=== PATIENT | male | born 1975 | race Caucasian/White ===

== ENCOUNTER → 2017-11-19 08:43 | Outpatient (CLI) | payer BC, SELFPAY ==
--- NOTE | 2017-11-19 08:53 | RAD_ITS ---
Procedure: Left hip injection. INDICATIONS: Left hip pain x2 years. CONSENT: The entire procedure, risks, benefits and alternatives (including doing nothing) were discussed with the patient preprocedure. Risks presented included (but were not limited to) infection/abscess/septic joint, bleeding, pain, and reaction to medications. All patient questions were answered satisfactorily. Written consent was obtained, witnessed and placed on the patient's chart. TECHNIQUE: The patient was taken into the fluoroscopy suite and placed in the supine position. A short time out was observed. Limited and directed preprocedure fluoroscopy of the left hip was performed and an intended percutaneous site identified and marked. The soft tissues overlying the left hip were then thoroughly prepped and draped in usual sterile manner. Local anesthesia was obtained with approximately 1.0 cc of 1% lidocaine without epinephrine. Next, 20-gauge spinal needle was utilized and inserted through the anterior soft tissues with tip parked on the femoral head within the joint space. From this location, 30 mg of betamethasone and 1 cc and 3 cc of 1% lidocaine without epinephrine were injected into the joint space. All devices were removed, the soft tissues cleansed and a Band-Aid applied. RAD/Inj/Asp Bakari Jt Should/Hip/Knee IMPRESSION: Successful left hip injection. Complication: The patient tolerated the procedure well. There was no evidence for immediate postprocedure complication. Fluoroscopy time 19 seconds. Electronically Signed: Gutierrez Sage MD at 10:40 EDT , Service support ,
== END ==
PROVIDERS: Family Provider Family Medicine; PCP Family Medicine; Visit Provider Specialist
DX: M16.12 Unilateral primary osteoarthritis, left hip (principal)
CPT/HCPCS: 20610; 77002; J0702

== ENCOUNTER 2018-07-14 06:36 | Inpatient (IN) | payer BC, SELFPAY ==
[2018-06-30 09:17] VITALS: BP 115/79; PULSE 71; RESP 16; TEMP 36.7; O2SAT 96; BMI 28.8
--- NOTE | 2018-06-30 09:31 | SDCEKG_ITS ---
Test Reason : Blood Pressure : / mmHG Vent. Rate : 072 BPM Atrial Rate : 072 BPM P-R Int : 150 ms QRS Dur : 078 ms QT Int : 364 ms P-R-T Axes : 060 051 050 degrees QTc Int : 398 ms Normal sinus rhythm Normal ECG Confirmed by BIRDIE PURCELL, OSWALDO ([id number]), news copy editor AHSAN NEVILLE ([id number]) on 07/02/2018 2:49:07 PM Referred By: Lenin Amador Confirmed By:OSWALDO PACKER MD
[2018-06-30 10:14] LABS: Absolute Lymphocyte Count 1.54 X10^3/ul (0.83-4.51); Absolute Neutrophil Count 1.6 X10^3/uL (2.0-7.7); Basophil# 0.02 X10^3/uL; Basophil% 0.6 % (0-1); Eosinophil# 0.04 X10^3/uL; Eosinophils% 1.1 % (0-5); Hematocrit 43.2 % (40-54); Hemoglobin 15.2 g/dl (13.0-16.5); Lymphocyte # 1.54 X10^3/ul (4.0); Lymphocyte % 44.3 % (19-41); Mean Corp Hgb Conc 35.2 g/gl (32-36); Mean Corpuscular Hgb 32.2 pg (27.0-32.0); Mean Corpuscular Volume 91.5 fL (80-94); Mean Platelet Vol. 9.4 fl (6.2-12.0); Monocyte# 0.32 X10^3/uL; Monocyte% 9.2 % (0-10); Neutrophil # 1.56 X10^3/uL (2.7-7.7); Neutrophil % 44.8 % (47-70); Platelet Count 232 K/mm3 (150-450); RBC Distribution Width CV 11.7 % (11.6-14.6); Red Blood Count 4.72 M/mm3 (4.6-6.2); White Blood Count 3.5 K/mm3 (4.4-11.0)
[2018-06-30 10:19] LABS: POSITIVE COUNT NO; POSITIVE DIFFERENTIAL NO; POSITIVE MORPHOLOGY NO
[2018-06-30 10:45] LABS: Anion Gap 8 (5-15); BUN 15 mg/dL (7-18); BUN/Creat Ratio 15.4 RATIO (10-20); Calcium,Total 9.1 mg/dL (8.5-10.1); Chloride 106 mmol/L (98-107); Creatinine, Serum 0.98 mg/dL (0.70-1.30); EST Glomerular Filtration Rate 90 mL/min (>60); Est Glom Filt Rate - Afr Amer 109 mL/min (>60); Estimated Creatinine Clearance 96.94 ml/min; Glucose 84 mg/dL (74-106); Sodium Level 142 mmol/L (136-145)
--- NOTE | 2018-06-30 21:52 | HP.PCM_ITS ---
History and Physical DATE OF SURGERY: 07/14/2018 SCHEDULED PROCEDURE: Left total Hip Arthroplasty HISTORY OF PRESENT ILLNESS: This is a 42-year-old male who has been having left hip pain for approximately 2 years. Pain has been intermittent, sharp, stabbing. He has increased pain going up and down stairs, sitting for extended periods of time, and walking. Patient states he has difficult time with activities of daily living including housework and leisure activities. Patient does report a previous injury in high school while playing soccer when he had a groin pull followed by intermittent pain in the left hip over the years. He does complain of catching and clicking in the left hip. Patient does have start up pain. Pain is located in his g roin. Patient has tripped/stumbled secondary to his left hip pain. He also does complain of right hip pain. Patient has tried conservative measures consisting of rest, heat, elevation with minimal relief. Patient did undergo a corticosteroid injection into the left hip in the spring which only gave him temporary relief. He has tried home exercises with no relief in symptoms. He has tried animal care taker with no relief. Patient has been on oral medications consisting of Advil with minimal relief. He has been on previous tramadol for pain. Patient denies previous surgery on the left hip. He denies any recent chest pain, shortness of breath, fevers chills, or recent infections. Patient does not report any medical problems. We are getting clearance from his primary care physician. REVIEW OF SYSTEMS: ROS: Const: Denies change in appetite, fever,or weight change. CV: Denies chest pain, heart murmur and irregular heartbeat. Resp: Denies cough, pneumonia, SOB, tuberculosis and wheezing. GI: Denies constipation, diarrhea, difficulty swallowing, heartburn, nausea, bloody stools and vomiting. : Urinary: denies incontinence. Musculo: Reports limp, trouble walking and weakness, but denies leg swelling. Skin: Reports tattoo, but denies Raynaud's and history of shingles. Neuro: Reports dizziness but denies ambulatory dysfunction, numbness/tingling and tremor. Psych: Denies anxiety, insomnia and stress. Eamon/Lymph: Denies anemia, bleeding/bruising tendency and past transfusion. Reviewed, no changes. PAST MEDICAL HISTORY: Advance Care Plan: No Advance Directives Effective Date: 03/02/2017 PMH: Medical Problems: No Current Problems Accidents: Fracture - LT PATELLA FX CHILD, BOTH ARMS Surgical Hx: Appendectomy, Knee Arthroscopy Lt Anesthesia Complications: None Assistive Devices: Contacts Reviewed, no changes. SOCIAL HISTORY: SH: Marital: .Occupation: [employer].Work Status: Currently Working.Hand Dominance: Right-handed. Personal Habits: Cigarette Use: Former.Alcohol: Occasionally.Drug Use: Denies Use.Enjoy Exercising: Exercises 1-3 x/month. Reviewed and updated. VITALS: Ht: 68 Wt: 190lb Wt k.184 BMI: 28.9 BP: 108/80 Pulse: 68 Resp: 16 T: 97.9 T: 36.6C ALLERGIES: Penicillin MEDICATIONS: Etodolac 400 mg 1 by mouth twice a day PRE-OP EXAM: General appearance:NORMAL Other: Eyes: Conjunctivae and lids: NORMAL Pupils: ERR Ears, Nose, Mouth, and Throat: NORMAL Other: Inspection of lips, teeth and gums: NORMAL Other: Neck: Examination of neck: no masses noted. Respiratory: Assessment of respiratory effort: NORMAL Other: Auscultation of lungs: clear to auscultation no wheezes, rhonchi or rales. Cardiovascular: Auscultation of heart: regular rate and rhythm, no murmurs, gallops or rubs. Exam of carotid arteries: NORMAL Other: Gastrointestinal: Exam of abdomen: soft, nontender, nondistended bowel sounds present. PHYSICAL EXAMINATION: Patient does walk with minimal limping gait. Left hip range of motion: Flexion 95, internal rotation to neutral, external rotation 25. Patient does have decreased strength left hip. Range of motion increases his left hip pain. Sensation intact to light touch. Neurovascularly intact. IMAGING STUDIES: X-rays obtained at [facility] [place] on June 30, 2018 including 2 views AP pelvis and AP left hip reveals severe left hip osteoarthritis with pistol hadoop software engineer deformity. Left hip shows a large cam and pincer lesion There is significant joint space narrowing with subchondral sclerosis. Right hip also shows pistol hadoop software engineer deformity with acetabular rim fracture versus os acetabuli. Right hip also shows joint space narrowing with subchondral sclerosis. IMPRESSION: 1. Severe left hip osteoarthritis with large CAM and pincer lesion 2. Severe right hip osteoarthritis PLAN: Dr. Lenin Amador did discuss and review with the patient all treatment options including surgical versus nonsurgical options. Patient does wish to proceed with the above-stated procedure. Potential risks, benefits, and complications of the procedure were discussed in detail including but not limited to , infection, nerve and blood vessel damage, persistent pain, numbness, tingling, paresthesias, blood clot, pulmonary embolism, and requirement for possible further surgery. The patient expressed full understanding and has no further questions for the doctor. Patient does agree to proceed with the above-stated procedure and has signed the surgery consent form. This dictation was created using voice recognition software. Phonetic and/or grammatical errors may exist.. ___ I have re-examined the patient. There are no clinical changes since date of exam. ___ See progress notes for changes. ___ Dictated on admission Date: Time: Signature:
[2018-07-14] VITALS (11 sets, daily range): BP systolic 101–120; BP diastolic 64–86; PULSE 52–80; RESP 16–18; TEMP 36.3–37.6; O2SAT 98–100; BMI 28.8
[2018-07-14] MEDS: Acetaminophen 500 MG Tablet 1000 MG PO ×3 (07:18→21:11)
[2018-07-14] MEDS: Celecoxib 200 MG Capsule 400 MG PO (07:18)
[2018-07-14] MEDS: oxyCODONE HCl Cr 10 MG Tablet PO (07:19)
[2018-07-14] MEDS: Lactated Ringers 1,000 ML 999 ML IV ×2 (07:48→10:55)
--- NOTE | 2018-07-14 08:45 | RAD_ITS ---
STUDY: X-RAY - LEFT HIP REASON FOR EXAM: Male, 42 years old. Left anterior total hip replacement. TECHNIQUE: 2 views of the hip. COMPARISON: None. FINDINGS: Intraoperative imaging provided for left anterior total hip replacement. There is good alignment. RAD/Hip 1 view with Pelvis IMPRESSION: Intraoperative imaging provided for left anterior total hip replacement. There is good alignment. Electronically Signed: Chriss Velasco MD at 13:02 EST Tel [phone], Service support ,
--- NOTE | 2018-07-14 10:05 | OP.PCM_ITS ---
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 Accolade 2 Tania femoral stem size 5 132? 2. Shokan trident acetabular shell size 52 mm 3. Tania X3 polyethylene E 4. Tania Biolox delta 36mm, 0mm femoral head Brief history operative indications: 42 yo M who failed conservative measures for their hip osteoarthritis. X-rays were consistent with osteoarthritis including joint space narrowing, osteophyte formation and subchondral cysts. Total hip replacement was discussed with the patient with risks and benefits including but not limited to blood loss, DVTs, PEs, neurovascular damage, dislocation, general risks of anesthesia including loss of life. Patient demonstrated an understanding medical clearance is obtained the patient was consented for surgery. Procedure: On the date of procedure the patient's L hip was marked in the preoperative area. Patient was then taken back to the operating room where anesthesia assumed control of the C-spine and airway and administered anesthetic. Patient was transferred to the operating table and placed in the supine position. The hips were placed at the break of the bed and a sacral bump was placed. The L lower extremity was then prepped out in a sterile fashion using chlorhexidine while the surgeon scrubbed. The PA was vital in the positioning of the patient. Upon reentering the room the L lower extremity was draped in the standard orthopedic fashion and the incision was marked. A timeout was called and everyone agreed upon the side, the site, the procedure be performed, antibody given, and patient's identity. At this time incision was made through skin, subcutaneous tissue, and fat down to fascia. The fascia was then incised and the TFL was retracted laterally. A retractor was placed on the lateral border of the femoral neck. Attention was directed to the inferior portion of the approach and all crossing vessels were identified and appropriately coagulated. A retractor was then placed on the medial portion of the femoral neck. The anterior capsule was then cleared of all soft tissue and then H shaped capsulotomy was made. The retractors were then placed inside the capsule. The femoral neck was identified and a cleanup cut was made. At this time a power corkscrew was used to remove the femoral head. Attention was then turned toward the acetabulum where the soft tissues were appropriately retracted and the acetabulum was sequentially reamed to 54 mm. A 54 mm cup was then selected and impacted into place. Acetabular liner was impacted into place and locking mechanism was verified. The position of the acetabular cup was then verified under live fluoroscopy. Attention was then turned to the femur. Soft tissue releases on the medial and lateral femoral neck were appropriately done, the leg was externally rotated and lateralized. A Roman retractor was placed medially and proximally to the greater trochanter this allowed appropriate visualization and exposure of the femoral canal. Rongeour was then used to remove excess lateral bone. A canal finder and entry broach were used to open the proximal canal. Once we verified we were down the femoral canal we subsequently broached up to a size 5 femur. The appropriate neck was placed in the previously selected head was trialed with a 0 mm neck. Traction was pulled and the hip was reduced with internal rotation. Once it was appropriately reduced and stability was checked. There was minimal shuck, equal leg lengths and appropriate stability with hyperextension and external rotation as well as with 90? flexion and internal rotation. Fluoroscopy was then also used to verify the position of the components and leg lengths using the contralateral side for comparison. The trial components were then dislocated the proximal femur was again exposed and the components were removed from the wound. The final components were verified and opened. The wound was copiously irrigated out with normal saline. The acetabulum was checked for any residual debris. The final components were placed and impacted. Traction and internal rotation were again used to reduce the hip. After adequate reduction the hip remained stable with appropriate leg lengths. The final components were once again checked with live fluoroscopy and were found to be satisfactory. The wound was then copiously irrigated with normal saline once more, and hemostasis was obtained. Closure was then done using #1 Vicryl runner to close the fascia. A 2-0 vicryl interuppted sutures were used to close the subcutaneous skin. A 3-0 Monocryl and Steri-Strips were used for final skin closure. A Silverlon dressing was placed. Patient was awakened by anesthesia and transferred to the [facility]. Patient was then transferred to the PACU for recovery. Postoperative plan: Patient will get 24 hours postop antibiotics. Patient will get in-house physical therapy and will be weight-bear as tolerated. Patient will follow up in office in 2 weeks for a wound check and x-rays. Grafts/Implants Used: Tania Accolade 2, Trident 2 - Complications NONE - Admit VTE Documentation VTE Present on Admission: No VTE Mechan Device Prophylaxis: SCD's, Thigh High HAYLEY Hose VTE Pharm Prophylaxis ordered?: Yes
--- NOTE | 2018-07-14 10:30 | RAD_ITS ---
STUDY: X-RAY - LEFT HIP REASON FOR EXAM: Male, 42 years old. Left hip replacement. TECHNIQUE: 2 views of the hip. COMPARISON: Comparison is made with prior study done earlier today. FINDINGS: The patient is status post left total hip replacement. There is normal alignment. Postoperative soft tissue changes. There is deformity of the right femoral neck and head suggestive of a femoral acetabular impingement. RAD/Hip Min 2 Views (Portable) IMPRESSION: Status post left total hip replacement. There is good alignment. Postoperative soft tissue changes. Electronically Signed: Chriss Velasco MD at 11:12 EST Tel [phone], Service support ,
[2018-07-14] MEDS: Scopolamine 1mg/72hr Patch 1 PATCH TD (10:55)
[2018-07-14] MEDS: Famotidine 20 MG Tablet PO (12:14)
[2018-07-14] MEDS: Senna/Docusate Sodium 1 Tablet 2 TABLET PO ×2 (12:14→21:11)
[2018-07-14] MEDS: Lactated Ringers 1,000 ML 125 ML IV (12:14)
--- NOTE | 2018-07-14 15:58 | CHAPLAIN ---
Type of Pastoral Visit _x__ Initial Visit ___ Follow-up Visit ___ On-call Visit ___ General Patient Visit ___ Spiritual Assessment ___ Family Conference ___ Bereavement ___ Rapid Response ___ Code Blue ___ Other (describe below) Pastoral Care Referral From _x__ Patient ___ Family ___ Nurse ___ Physician ___ Beverage Steward ___ Laboratory Asst ___ Other (describe below) Sacrament/Intervention _x__ Active listening ___ Anointing ___ Sabianism ___ Bereavement ___ Communion _x__ Nadya exploration ___ _x__ Life review _x__ Prayer ___ Reconciliation ___ Sacrament of Sick ___ Supportive presence ___ Wedding ___ Other (describe below) Pastoral Comments
[2018-07-14] MEDS: Aspirin 81 MG TAB.CHEW PO (16:19)
[2018-07-14] MEDS: oxyCODONE 5 MG Tablet PO ×2 (19:11→23:20)
[2018-07-15 02:57] VITALS: BP 100/60; PULSE 82; RESP 16; TEMP 36.9; O2SAT 97
[2018-07-15] MEDS: Acetaminophen 500 MG Tablet 1000 MG PO ×2 (06:10→13:15)
[2018-07-15 06:46] LABS: Hematocrit 33.6 % (40-54); Hemoglobin 11.6 g/dl (13.0-16.5); Mean Corp Hgb Conc 34.5 g/gl (32-36); Mean Corpuscular Hgb 32.4 pg (27.0-32.0); Mean Corpuscular Volume 93.9 fL (80-94); Mean Platelet Vol. 9.3 fl (6.2-12.0); Platelet Count 194 K/mm3 (150-450); RBC Distribution Width CV 11.7 % (11.6-14.6); RBC Distribution Width SD 38.8 fl (35.1-43.9); Red Blood Count 3.58 M/mm3 (4.6-6.2); White Blood Count 7.4 K/mm3 (4.4-11.0)
[2018-07-15 06:56] LABS: Scan Indicated on CBC? Y/N NO
[2018-07-15 06:58] LABS: Anion Gap 8 (5-15); BUN 12 mg/dL (7-18); Calcium,Total 8.1 mg/dL (8.5-10.1); Chloride 106 mmol/L (98-107); Creatinine, Serum 0.86 mg/dL (0.70-1.30); EST Glomerular Filtration Rate 105 mL/min (>60); Est Glom Filt Rate - Afr Amer 127 mL/min (>60); Estimated Creatinine Clearance 110.47 ml/min; Glucose 95 mg/dL (74-106); Sodium Level 141 mmol/L (136-145)
[2018-07-15 08:00] VITALS: BP 99/68; PULSE 69; RESP 16; TEMP 37.2; O2SAT 94
[2018-07-15] MEDS: Aspirin 81 MG TAB.CHEW PO (08:33)
--- NOTE | 2018-07-15 09:03 | PCM.PN.ORT ---
Subjective: The patient was sitting in bed upon examination. Patient denies any chest pain, shortness of breath, dizziness, lightheadedness, nausea or vomiting, or calf pain. Pain is controlled on medications. No adverse overnight events. Overall patient is doing well. He does have pain over the anterior thigh on the surgical side. Patient does wish to go home today. Objective: Vital signs stable and afebrile. Patient is able to plantarflex and dorsiflex actively. Sensation is intact to light touch to saphenous, sural, superficial and deep peroneal, and tibial distribution. Dressing is clean dry and intact. Negative Homans bilaterally, negative signs and symptoms of DVT. - Physical Exam General: Alert, Oriented x3, Cooperative, No apparent distress Vital Signs Temp Pulse Resp BP Pulse Ox 99.0 F 69 16 99/68 94 07/15/18 08:00 07/15/18 08:00 07/15/18 08:00 07/15/18 08:00 07/15/18 08:00 Oxygen Delivery Method Room Air Weight: 86.183 kg Body Mass Index (BMI) 28.8 Intake and Output for Last 24 Hours 07/13/18 07/14/18 07/15/18 23:59 23:59 23:59 Intake Total 2646 / 2646 669 / 669 Balance 2646 / 2646 669 / 669 Laboratory Tests Past 24 Hrs 07/15/18 07/15/18 06:28 06:28 WBC 7.4 RBC 3.58 L Hgb 11.6 L Hct 33.6 L MCV 93.9 MCH 32.4 H MCHC 34.5 RDW 11.7 RDW Differential 38.8 Plt Count 194 MPV 9.3 Sodium 141 Potassium 4.0 Chloride 106 Carbon Dioxide 27.0 Anion Gap 8 BUN 12 Creatinine 0.86 Estim Creat Clear Calc 110.47 Est GFR (MDRD) Af Amer 127 Est GFR (MDRD) Non-Af 105 BUN/Creatinine Ratio 14.0 Glucose 95 Calcium 8.1 L Medical Necessity - Tobacco Use Smoking Status: Former smoker Tobacco Use: Chew Assessment/Plan 1. S/P left direct anterior total hip arthroplasty POD #1 2. Continue Pain Medications: Tylenol and OxyIR 3. DVT Prophylaxis: Aspirin 81 mg twice daily with food for 4 weeks postoperatively 4. PT/OT: Weightbearing as tolerated 5. H & H: 11.6/33.6, asymptomatic 6. Encouraged Incentive Spirometry 7. Disposition: Then will be for discharge home today if patient tolerates physical therapy and pain is controlled. Prescriptions will be E scribed to [facility] pharmacy. Patient will follow-up per postop instructions.
--- NOTE | 2018-07-15 09:09 | PCM.DC.THR ---
Discharge Diet: No Restrictions Discharge Activity: May Not Drive - while taking narcotic pain medications. May shower in (days): 1 - Turned dressing away from water Ice area for (Minutes): 20 - Every 1-2 hours while awake Weight Bearing Status: Weight bearing as tolerated Elevate: Operative Extremity Additional Activity Instructions:: Wear elastic stockings for 2 weeks. DO NOT use alcohol with narcotic pain medication. DO NOT make important decisions while taking narcotic medication. If you have problems with taking your medication (rash, itching, nausea, etc.) call the office at once. Call your doctor if your incision/area has: Increased Pain/ Swelling, Increased Redness, Foul Smelling Discharge Call your doctor if you observe: Fever of 101 or Higher Remove Dressing in (days):: 4 - Okay to remove dressing on July 19, 2018 Additional Instructions: Follow [facility] postop instructions Allergies/Adverse Reactions: Allergies Penicillins Allergy (Verified 06/30/18 09:15) Unknown Medications to take at Discharge Acetaminophen [Tylenol] 1,000 mg PO Q8 #90 tablet 07/15/18 Aspirin [Aspirin, Baby] 81 mg PO BIDCM #60 tab.chew 07/15/18 Famotidine [Pepcid] 20 mg PO DAILY #30 tablet 07/15/18 Meloxicam [Mobic] 7.5 mg PO BID #60 tablet 07/15/18 Oxycodone [Oxyir] 5 - 10 mg PO Q4H PRN PRN 5 Days #60 tablet 07/15/18 Senna/Docusate Sodium [Senokot-S] 2 tablet PO BID #20 tablet 07/15/18 The following prescriptions were given: Oxycodone [Oxyir] 5 - 10 mg PO Q4H PRN PRN 5 Days #60 tablet PRN Reason: Mod-Severe Pain (4-10/10) Acetaminophen [Tylenol] 1,000 mg PO Q8 #90 tablet Famotidine [Pepcid] 20 mg PO DAILY #30 tablet Aspirin [Aspirin, Baby] 81 mg PO BIDCM #60 tab.chew Meloxicam [Mobic] 7.5 mg PO BID #60 tablet Senna/Docusate Sodium [Senokot-S] 2 tablet PO BID #20 tablet Primary Care Physician: Marylin Brewer [Primary Care Provider] - Test Results: Test results from this visit will be discussed in further detail at your follow-up appointment, if applicable. Please Follow Up With: [facility] When: 07/16/18 @ 11:00 am Please Follow Up With: Hector Billings PA-C When: 07/28/18 @ 9:00 am
[2018-07-15] MEDS: Senna/Docusate Sodium 1 Tablet 2 TABLET PO (11:15)
[2018-07-15] MEDS: Famotidine 20 MG Tablet PO (11:15)
[2018-07-15] MEDS: Meloxicam 7.5 MG Tablet PO (11:15)
--- NOTE | 2018-07-15 12:10 | CASEMGMT ---
GABINO AHN Face to Face with patient for initial transition planning/care coordination assessment. RN JIMY introduced self and role at [facility]. Patient lying in bed, alert and oriented. Patient willing to participate in assessment and is able to answer all questions appropriately. Care providers, pharmacy, and demographics verified. Patient wishes to discharge home and is setup with [facility] for outpatient therapy with family providing transportation. Patient states that he will need FWW for at home and would like [employer] for DME. Script received for FWW and referral sent to JIMY Peralta arranged for walker to be delivered to hospital prior to discharge. . Patient states he has no further needs or concerns at this time. CM to follow for discharge planning needs that may arise. Disposition Plan: Patient to discharge home with outpatient therapy, family support, and follow-up plans in place. Josee GONG, RN, CM
[2018-07-15] MEDS: oxyCODONE 5 MG Tablet PO (13:13)
[2018-07-15 13:32] VITALS: BP 131/76; PULSE 94; RESP 16; TEMP 37.6; O2SAT 96
--- OUTSIDE RECORDS SUMMARY | 2018-10-15 07:40 | XMS RPT_ITS ---
:1975 Author Organization OHIP Care Team Providers Name Role Phone Ulises Richardson Attending Unavailable Lenin Amador Referring Unavailable Lenin Amador Attending Unavailable ANSELMO, ALECIA Primary Care Unavailable Lenin Amador Admitting Unavailable Lenin Amador Attending Unavailable ANSELMO, ALECIA Primary Care Unavailable Lenin Amador Referring Unavailable PROBLEMS PROBLEMS DATE TYPE CONDITION / CODE ATTENDING STATUS SOURCE 07/15/2018 Unknown Z96.642 - Presence Lenin Amador Active [place] of left artificial Community hip joint / Hospital Z96.642(ICD-10) Repository 07/09/2018 Unknown Z01.810 - Encounter Ulises Richardson Active [place] for preprocedural [facility] cardiovascular Hospital examination / Repository Z01.810(ICD-10) PROCEDURES PROCEDURES No Procedure Records FoundRESULTS RESULTS DISCHARGE INSTRUCTION Observed: 07/15/2018 Status: F Source: [place] 9:11 AM [facility] REPOSITORY [facility] Medical Records Department [address] [place] [address] Instructions for Home/Discharge Instructions 07/15/18 0909 MR#: [id number] Acct: [id number] Name: ISABEL [place]EV[place] Rep #: [id number] : 1975 42 From: Hector Billings PA-C PCP: ALECIA BREWER Status: ADM IN Discharge Diet: No Restrictions Discharge Activity: May Not Drive - while taking narcotic pain medications. May shower in (days): 1 - Turned dressing away from water Ice area for (Minutes): 20 - Every 1-2 hours while awake Weight Bearing Status: Weight bearing as tolerated Elevate: Operative Extremity Additional Activity Instructions:: Wear elastic stockings for 2 weeks. DO NOT use alcohol with narcotic pain medication. DO NOT make important decisions while taking narcotic medication. If you have problems with taking your medication (rash, itching, nausea, etc.) call the office at once. Call your doctor if your incision/area has: Increased Pain/ Swelling, Increased Redness, Foul Smelling Discharge Call your doctor if you observe: Fever of 101 or Higher Remove Dressing in (days):: 4 - Okay to remove dressing on July 19, 2018 Additional Instructions: Follow [place] [facility] postop instructions Allergies/Adverse Reactions: Allergies Penicillins Allergy (Verified 06/30/18 09:15) Unknown Medications to take at Discharge Acetaminophen [Tylenol] 1,000 mg PO Q8 #90 tablet 07/15/18 Aspirin [Aspirin, Baby] 81 mg PO BIDCM #60 tab.chew 07/15/18 Famotidine [Pepcid] 20 mg PO DAILY #30 tablet 07/15/18 Meloxicam [Mobic] 7.5 mg PO BID #60 tablet 07/15/18 Oxycodone [Oxyir] 5 - 10 mg PO Q4H PRN PRN 5 Days #60 tablet 07/15/18 Senna/Docusate Sodium [Senokot-S] 2 tablet PO BID #20 tablet 07/15/18 The following prescriptions were given: Oxycodone [Oxyir] 5 - 10 mg PO Q4H PRN PRN 5 Days #60 tablet PRN Reason: Mod-Severe Pain (-05/05) Acetaminophen [Tylenol] 1,000 mg PO Q8 #90 tablet Famotidine [Pepcid] 20 mg PO DAILY #30 tablet Aspirin [Aspirin, Baby] 81 mg PO BIDCM #60 tab.chew Meloxicam [Mobic] 7.5 mg PO BID #60 tablet Senna/Docusate Sodium [Senokot-S] 2 tablet PO BID #20 tablet Primary Care Physician: Alecia Brewer [Primary Care Provider] - Test Results: Test results from this visit will be discussed in further detail at your follow-up appointment, if applicable. Please Follow Up With: [place] [facility] physical therapy When: 07/16/18 @ 11:00 am Please Follow Up With: Hector Billings PA-C When: 07/28/18 @ 9:00 am 07/15/18 0911 <Electronically signed by Hector Billings PA-C> Date Hector Billings PA-C CC: ALECIA BREWER CBC-COMPLETE BLOOD CNT Collected: 07/15/2018 Status: F Source: [place] NO DIFF 6:28 AM [facility] REPOSITORY TYPE CODE TESTS RESULT OUT OF RANGE REFERENCE UNITS LAB L100.1000 4.4-11.0 K/mm3 Normal WBC 7.4 LAB L100.1200 4.6-6.2 M/mm3 Low RBC 3.58 LAB L100.1300 13.0-16.5 g/dl Low HGB 11.6 LAB L100.1400 40-54 % Low HCT 33.6 LAB L100.1500 80-94 fL Normal MCV 93.9 LAB L100.1600 27.0-32.0 pg High MCH 32.4 LAB L100.1700 32-36 g/gl Normal MCHC 34.5 LAB L100.1810 11.6-14.6 % Normal RDW CV 11.7 LAB L100.1820 35.1-43.9 fl Normal RDW SD 38.8 LAB L100.1900 150-450 K/mm3 Normal PLT 194 LAB L100.2000 6.2-12.0 fl Normal MPV 9.3 Performed By: #### L100.0500 #### [facility] [address] [place], [address] BASIC METABOLIC Collected: 07/15/2018 Status: F Source: [place] PROFILE (BMP) 6:28 AM [facility] REPOSITORY TYPE CODE TESTS RESULT OUT OF RANGE REFERENCE UNITS LAB L501.0100 74-106 mg/dL Normal GLU 95 Result Comment: Please note revised GLUCOSE reference range effective 2017. LAB L501.1000 7-18 mg/dL Normal BUN 12 LAB L501.1100 0.70-1.30 mg/dL Normal CREAT,SERUM 0.86 Result Comment: The validity of the calculated GFR AND GFRAA in patients over 70 years has not been determined. Clinical correlation is essential. LAB L501.1110 >60 mL/min Normal EST GFR 105 Result Comment: Non- GFR Calc LAB L501.1115 >60 mL/min Normal EST GFR - AA 127 Result Comment: GFR Calc LAB L501.1255 ml/min Normal Estimated CRCL 110.47 LAB L501.1300 10-20 RATIO BUN/CRE Normal 14.0 LAB L501.2200 8.5-10 mg/dL Low .1 CA 8.1 LAB L501.5300 136-14 mmol/L 5 NA Normal 141 LAB L501.5600 3.5-5. mmol/L 1 K Normal 4.0 LAB L501.5900 98-107 mmol/L CL Normal 106 LAB L501.6100 21.0-3 mmol/L 2.0 CO2 Normal 27.0 LAB L501.6200 5-15 GAP Normal 8 Performed By: #### L500.2500 #### [facility] [address] [place], [address] OPERATIVE REPORT Observed: 07/14/2018 Status: F Source: [place] 10:26 AM [facility] REPOSITORY [facility] Medical Records Department [address] [place] [address] Operative Report 07/14/18 1001 MR#: [id number] Acct: [id number] Name: ISABEL NEVILLE Rep #: [id number] : 1975 42 From: Lenin Amador MD PCP: ALECIA BREWER Status: ADM IN Y [facility]: [facility] ADDENDUM by Lenin Amador MD on 07/14/18 at 1026 Code Visit Correction materials assistant was Lamine Borrego 07/14/18 1026 <Electronically signed by Lenin Amador MD> Date Lenin Amador MD cc: ALECIA ANSELMO; Lenin Amador MD * Signed Report of Operation Date of Procedure: 07/14/18 Pre-Operative Diagnosis: Left hip primary osteoarthritis Post-Operative Diagnosis: Left hip primary osteoarthritis Surgery/Procedure Performed:: Left direct anterior total hip replacement Description of Surgical Findings:: Stable hip with equal leg lengths 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 Accolade 2 [place] femoral stem size 5 132 2. [place] trident acetabular shell size 52 mm 3. [place] X3 polyethylene E 4. [place] Biolox delta 36mm, 0mm femoral head Brief history operative indications: 42 yo M who failed conservative measures for their hip osteoarthritis. X-rays were consistent with osteoarthritis including joint space narrowing, osteophyte formation and subchondral cysts. Total hip replacement was discussed with the patient with risks and benefits including but not limited to blood loss, DVTs, PEs, neurovascular damage, dislocation, general risks of anesthesia including loss of life. Patient demonstrated an understanding medical clearance is obtained the patient was consented for surgery. Procedure: On the date of procedure the patient's L hip was marked in the preoperative area. Patient was then taken back to the operating room where anesthesia assumed control of the C-spine and airway and administered anesthetic. Patient was transferred to the operating table and placed in the supine position. The hips were placed at the break of the bed and a sacral bump was placed. The L lower extremity was then prepped out in a sterile fashion using chlorhexidine while the surgeon scrubbed. The PA was vital in the positioning of the patient. Upon reentering the room the L lower extremity was draped in the standard orthopedic fashion and the incision was marked. A timeout was called and everyone agreed upon the side, the site, the procedure be performed, antibody given, and patient's identity. At this time incision was made through skin, subcutaneous tissue, and fat down to fascia. The fascia was then incised and the TFL was retracted laterally. A retractor was placed on the lateral border of the femoral neck. Attention was directed to the inferior portion of the approach and all crossing vessels were identified and appropriately coagulated. A retractor was then placed on the medial portion of the femoral neck. The anterior capsule was then cleared of all soft tissue and then H shaped capsulotomy was made. The retractors were then placed inside the capsule. The femoral neck was identified and a cleanup cut was made. At this time a power corkscrew was used to remove the femoral head. Attention was then turned toward the acetabulum where the soft tissues were appropriately retracted and the acetabulum was sequentially reamed to 54 mm. A 54 mm cup was then selected and impacted into place. Acetabular liner was impacted into place and locking mechanism was verified. The position of the acetabular cup was then verified under live fluoroscopy. Attention was then turned to the femur. Soft tissue releases on the medial and lateral femoral neck were appropriately done, the leg was externally rotated and lateralized. A Roman retractor was placed medially and proximally to the greater trochanter this allowed appropriate visualization and exposure of the femoral canal. Rongeour was then used to remove excess lateral bone. A canal finder and entry broach were used to open the proximal canal. Once we verified we were down the femoral canal we subsequently broached up to a size 5 femur. The appropriate neck was placed in the previously selected head was trialed with a 0 mm neck. Traction was pulled and the hip was reduced with internal rotation. Once it was appropriately reduced and stability was checked. There was minimal shuck, equal leg lengths and appropriate stability with hyperextension and external rotation as well as with 90 flexion and internal rotation. Fluoroscopy was then also used to verify the position of the components and leg lengths using the contralateral side for comparison. The trial components were then dislocated the proximal femur was again exposed and the components were removed from the wound. The final components were verified and opened. The wound was copiously irrigated out with normal saline. The acetabulum was checked for any residual debris. The final components were placed and impacted. Traction and internal rotation were again used to reduce the hip. After adequate reduction the hip remained stable with appropriate leg lengths. The final components were once again checked with live fluoroscopy and were found to be satisfactory. The wound was then copiously irrigated with normal saline once more, and hemostasis was obtained. Closure was then done using #1 Vicryl runner to close the fascia. A 2-0 vicryl interuppted sutures were used to close the subcutaneous skin. A 3-0 Monocryl and Steri-Strips were used for final skin closure. A Silverlon dressing was placed. Patient was awakened by anesthesia and transferred to the [place]. Patient was then transferred to the PACU for recovery. Postoperative plan: Patient will get 24 hours postop antibiotics. Patient will get in-house physical therapy and will be weight-bear as tolerated. Patient will follow up in office in 2 weeks for a wound check and x-rays. Grafts/Implants Used: Tania Accolade 2, Trident 2 - Complications NONE - Admit VTE Documentation VTE Present on Admission: No VTE Mechan Device Prophylaxis: SCD's, Thigh High HAYLEY Hose VTE Pharm Prophylaxis ordered?: Yes 07/14/18 1005 <Electronically signed by [place] Amador MD> Date Lenin Amador MD CC: ALECIA BREWER; [place] Amador MD Signed HIP MIN 2 VIEWS Observed: 07/14/2018 Status: F Source: [place] (PORTABLE) 7:10 AM [facility] REPOSITORY [facility] Imaging Services [address] [place] [id number] Hip Min 2 Views (Portable) MR#: [id number] Acct: [id number] Name: ISABEL NEVILLE Rep #: [id number] : 1975 M 42 From: Chriss Velasco MD PCP: ALECIA BREWER Status: ADM IN Study: Hip Min 2 Views (Portable) Date of Exam: 07/14/18 Exam# [id number] Ordering Dr: [place] Amador MD STUDY: X-RAY - LEFT HIP REASON FOR EXAM: Male, 42 years old. Left hip replacement. TECHNIQUE: 2 views of the hip. COMPARISON: Comparison is made with prior study done earlier today. FINDINGS: The patient is status post left total hip replacement. There is normal alignment. Postoperative soft tissue changes. There is deformity of the right femoral neck and head suggestive of a femoral acetabular impingement. RAD/Hip Min 2 Views (Portable) IMPRESSION: Status post left total hip replacement. There is good alignment. Postoperative soft tissue changes. Electronically Signed: Chriss Velasco MD at 11:12 EST Tel [phone], Service support , CC: ALECIA BREWER; [place] Amador MD Beauty Consultant: Signed HIP 1 VIEW WITH Observed: 07/14/2018 Status: F Source: [place] PELVIS 2:54 AM [facility] REPOSITORY [facility] Imaging Services [address] [place] [id number] Hip 1 view with Pelvis MR#: [id number] Acct: [id number] Name: ISABEL NEVILLE Rep #: [id number] : 1975 M 42 From: Chriss Velasco MD PCP: ALECIA BREWER Status: ADM IN Study: Hip 1 view with Pelvis Date of Exam: 07/14/18 Exam# [id number] Ordering Dr: [place] Amador MD STUDY: X-RAY - LEFT HIP REASON FOR EXAM: Male, 42 years old. Left anterior total hip replacement. TECHNIQUE: 2 views of the hip. COMPARISON: None. FINDINGS: Intraoperative imaging provided for left anterior total hip replacement. There is good alignment. RAD/Hip 1 view with Pelvis IMPRESSION: Intraoperative imaging provided for left anterior total hip replacement. There is good alignment. Electronically Signed: Chriss Velasco MD at 13:02 EST Tel [phone], Service support , CC: ALECIA BREWER; [place] Amador MD Beauty Consultant: Signed 12 LEAD ELECTROCARDIOGRAM Observed: 07/02/2018 Status: F Source: [place] 2:49 PM [facility] REPOSITORY [facility] Cardiovascular Services [address] [place] [address] EKG - [facility] 06/30/18935 MR#: [id number] Acct: [id number] Name: JAMINISABEL Rep #: [id number] : 1975 42 From: Ulises Richardson MD Attending Dr: [place] Amador MD Status: PRE IN Ordering Dr: [place] Amador MD Date: 06/30/18 Location: [facility] Sex: M C Admitted: Test Reason : Blood Pressure : / mmHG Vent. Rate : 072 BPM Atrial Rate : 072 BPM P-R Int : 150 ms QRS Dur : 078 ms QT Int : 364 ms P-R-T Axes : 060 051 050 degrees QTc Int : 398 ms Normal sinus rhythm Normal ECG Confirmed by ULISES RICHARDSON MD ([id number]), communications editor AHSAN [place]LE ([id number]) on 07/02/2018 2:49:07 PM Referred By: [place] Amador Confirmed By:ULISES RICHARDSON MD 07/02/18 1449 Date Ulises Richardson MD CC: ALECIA Amador MD Date Dictated: 06/30/1836 Date Transcribed: 06/30/18935 Beauty Consultant: Signed HISTORY AND PHYSICAL Observed: 06/30/2018 Status: F Source: [place] EXAM 9:53 PM [facility] Medical Records Department [address] [place] [address] History and Physical 06/30/182149 MR#: [id number] Acct: [id number] Name: ISABEL NEVILLE Rep #: [id number] : 1975 42 From: Hector Billings PA-C PCP: ALECIA BREWER Status: PRE IN Y Location: [facility] History and Physical DATE OF SURGERY: 07/14/2018 SCHEDULED PROCEDURE: Left total Hip Arthroplasty HISTORY OF PRESENT ILLNESS: This is a 42-year-old male who has been having left hip pain for approximately 2 years. Pain has been intermittent, sharp, stabbing. He has increased pain going up and down stairs, sitting for extended periods of time, and walking. Patient states he has difficult time with activities of daily living including housework and leisure activities. Patient does report a previous injury in high school while playing soccer when he had a groin pull followed by intermittent pain in the left hip over the years. He does complain of catching and clicking in the left hip. Patient does have start up pain. Pain is located in his groin. Patient has tripped/stumbled secondary to his left hip pain. He also does complain of right hip pain. Patient has tried conservative measures consisting of rest, heat, elevation with minimal relief. Patient did undergo a corticosteroid injection into the left hip in the spring which only gave him temporary relief. He has tried home exercises with no relief in symptoms. He has tried respiratory care faculty with no relief. Patient has been on oral medications consisting of Advil with minimal relief. He has been on previous tramadol for pain. Patient denies previous surgery on the left hip. He denies any recent chest pain, shortness of breath, fevers chills, or recent infections. Patient does not report any medical problems. We are getting clearance from his primary care physician. REVIEW OF SYSTEMS: ROS: Const: Denies change in appetite, fever,or weight change. CV: Denies chest pain, heart murmur and irregular heartbeat. Resp: Denies cough, pneumonia, SOB, tuberculosis and wheezing. GI: Denies constipation, diarrhea, difficulty swallowing, heartburn, nausea, bloody stools and vomiting. : Urinary: denies incontinence. Musculo: Reports limp, trouble walking and weakness, but denies leg swelling. Skin: Reports tattoo, but denies Raynaud's and history of shingles. Neuro: Reports dizziness but denies ambulatory dysfunction, numbness/tingling and tremor. Psych: Denies anxiety, insomnia and stress. Eamon/Lymph: Denies anemia, bleeding/bruising tendency and past transfusion. Reviewed, no changes. PAST MEDICAL HISTORY: Advance Care Plan: No Advance Directives Effective Date: 03/02/2017 PMH: Medical Problems: No Current Problems Accidents: Fracture - LT PATELLA FX CHILD, BOTH ARMS Surgical Hx: Appendectomy, Knee Arthroscopy Lt Anesthesia Complications: None Assistive Devices: Contacts Reviewed, no changes. 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 Personal Habits: Cigarette Use: Former.Alcohol: Occasionally.Drug Use: Denies Use.Enjoy Exercising: Exercises 1-3 x/month. Reviewed and updated. VITALS: Ht: 68 Wt: 190lb Wt k.184 BMI: 28.9 BP: 108/80 Pulse: 68 Resp: 16 T: 97.9 T: 36.6C ALLERGIES: Penicillin MEDICATIONS: Etodolac 400 mg 1 by mouth twice a day PRE-OP EXAM: General appearance:NORMAL Other: Eyes: Conjunctivae and lids: NORMAL Pupils: ERR Ears, Nose, Mouth, and Throat: NORMAL Other: Inspection of lips, teeth and gums: NORMAL Other: Neck: Examination of neck: no masses noted. Respiratory: Assessment of respiratory effort: NORMAL Other: Auscultation of lungs: clear to auscultation no wheezes, rhonchi or rales. Cardiovascular: Auscultation of heart: regular rate and rhythm, no murmurs, gallops or rubs. Exam of carotid arteries: NORMAL Other: Gastrointestinal: Exam of abdomen: soft, nontender, nondistended bowel sounds present. PHYSICAL EXAMINATION: Patient does walk with minimal limping gait. Left hip range of motion: Flexion 95, internal rotation to neutral, external rotation 25. Patient does have decreased strength left hip. Range of motion increases his left hip pain. Sensation intact to light touch. Neurovascularly intact. IMAGING STUDIES: X-rays obtained at [facility] on June 30, 2018 including 2 views AP pelvis and AP left hip reveals severe left hip osteoarthritis with pistol financial investigator deformity. Left hip shows a large cam and pincer lesion There is significant joint space narrowing with subchondral sclerosis. Right hip also shows pistol financial investigator deformity with acetabular rim fracture versus os acetabuli. Right hip also shows joint space narrowing with subchondral sclerosis. IMPRESSION: 1. Severe left hip osteoarthritis with large CAM and pincer lesion 2. Severe right hip osteoarthritis PLAN: Dr. [place] Amador did discuss and review with the patient all treatment options including surgical versus nonsurgical options. Patient does wish to proceed with the above-stated procedure. Potential risks, benefits, and complications of the procedure were discussed in detail including but not limited to , infection, nerve and blood vessel damage, persistent pain, numbness, tingling, paresthesias, blood clot, pulmonary embolism, and requirement for possible further surgery. The patient expressed full understanding and has no further questions for the doctor. Patient does agree to proceed with the above-stated procedure and has signed the surgery consent form. This dictation was created using voice recognition software. Phonetic and/or grammatical errors may exist.. ___ I have re-examined the patient. There are no clinical changes since date of exam. ___ See progress notes for changes. ___ Dictated on admission Date: Time: Signature: 06/30/18 2152 <Electronically signed by Hector Billings PA-C> Date Hector Billings PA-C Cosigner Signature: Date (if applicable) CC: ALECIA BREWER; Hector BOYER Signed CBC W/DIFF, AUTOMATED Collected: 06/30/2018 Status: F Source: [place] 9:43 AM [facility] REPOSITORY TYPE CODE TESTS RESULT OUT OF RANGE REFERENCE UNITS LAB L100.1000 4.4-11.0 K/mm3 Low WBC 3.5 LAB L100.1200 4.6-6.2 M/mm3 Normal RBC 4.72 LAB L100.1300 13.0-16.5 g/dl Normal HGB 15.2 LAB L100.1400 40-54 % Normal HCT 43.2 LAB L100.1500 80-94 fL Normal MCV 91.5 LAB L100.1600 27.0-32.0 pg High MCH 32.2 LAB L100.1700 32-36 g/gl Normal MCHC 35.2 LAB L100.1810 11.6-14.6 % Normal RDW CV 11.7 LAB L100.1820 35.1-43.9 fl Normal RDW SD 39.0 LAB L100.1900 150-450 K/mm3 Normal PLT 232 LAB L100.2000 6.2-12.0 fl Normal MPV 9.4 LAB L100.2100 47-70 % Low NEUT% 44.8 LAB L100.2200 19-41 % High LY% 44.3 LAB L100.2300 0-10 % Normal MONO% 9.2 LAB L100.2400 0-5 % Normal EO% 1.1 LAB L100.2500 0-1 % Normal BASO% 0.6 LAB L100.2550 0.0-0.9 % Normal IM GRAN % 0.000 Result Comment: IG% - Immature Granulocytes (promyelocytes, myelocytes and metamyelocytes) > 1% indicates that a LEFT SHIFT is Present. LAB L100.2620 2.0-7.7 X10 3/uL Low Absolute Neut 1.6 LAB L100.2720 0.83-4.51 X10 3/ul Normal Absolute Lymph 1.54 Performed By: #### L100.0100 #### [facility] [address] [place], [address] BASIC METABOLIC Collected: 06/30/2018 Status: F Source: [place] PROFILE (BMP) 9:43 AM [facility] REPOSITORY TYPE CODE TESTS RESULT OUT OF RANGE REFERENCE UNITS LAB L501.0100 74-106 mg/dL Normal GLU 84 Result Comment: Please note revised GLUCOSE reference range effective 2017. LAB L501.1000 7-18 mg/dL Normal BUN 15 LAB L501.1100 0.70-1.30 mg/dL Normal CREAT,SERUM 0.98 Result Comment: The validity of the calculated GFR AND GFRAA in patients over 70 years has not been determined. Clinical correlation is essential. LAB L501.1110 >60 mL/min Normal EST GFR 90 Result Comment: Non- GFR Calc LAB L501.1115 >60 mL/min Normal EST GFR - AA 109 Result Comment: GFR Calc LAB L501.1255 ml/min Normal Estimated CRCL 96.94 LAB L501.1300 10-20 RATIO Normal BUN/CRE 15.4 LAB L501.2200 8.5-10 mg/dL Normal .1 CA 9.1 LAB L501.5300 136-14 mmol/L Normal 5 NA 142 LAB L501.5600 3.5-5. mmol/L Normal 1 K 4.0 LAB L501.5900 98-107 mmol/L Normal CL 106 LAB L501.6100 21.0-3 mmol/L Normal 2.0 CO2 28.0 LAB L501.6200 5-15 Normal GAP 8 Performed By: #### [id number] #### [facility] [address] [place], [place], [address] Observed: 06/30/2018 Status: F Source: [place] MRSA/SAID SCREEN 9:43 AM [facility] REPOSITORY MRSA/SAID SCRN S. AUREUS S. aureus Negative MRSA MRSA Negative Performed By: #### M100.651 #### [facility] [address] [place], [place], [address] INJ/ASP BAKARI JT Observed: 11/19/2017 Status: F Source: [place] SHOULD/HIP/KNEE 8:53 AM [facility] REPOSITORY [facility] Imaging Services [address] [place] [address] Inj/Asp Bakari Jt Should/Hip/Knee MR#: [id number] Acct: [id number] Name: ISABEL NEVILLE Rep #: [id number] : 1975 M 42 From: Gutierrez Sage MD PCP: ALECIA BREWER Status: REG CLI Study: Inj/Asp Bakari Jt Should/Hip/Knee Date of Exam: 11/19/17 Exam# [id number] Ordering Dr: Lenin Amador MD Procedure: Left hip injection. INDICATIONS: Left hip pain x2 years. CONSENT: The entire procedure, risks, benefits and alternatives (including doing nothing) were discussed with the patient preprocedure. Risks presented included (but were not limited to) infection/abscess/septic joint, bleeding, pain, and reaction to medications. All patient questions were answered satisfactorily. Written consent was obtained, witnessed and placed on the patient's chart. TECHNIQUE: The patient was taken into the fluoroscopy suite and placed in the supine position. A short time out was observed. Limited and directed preprocedure fluoroscopy of the left hip was performed and an intended percutaneous site identified and marked. The soft tissues overlying the left hip were then thoroughly prepped and draped in usual sterile manner. Local anesthesia was obtained with approximately 1.0 cc of 1% lidocaine without epinephrine. Next, 20-gauge spinal needle was utilized and inserted through the anterior soft tissues with tip parked on the femoral head within the joint space. From this location, 30 mg of betamethasone and 1 cc and 3 cc of 1% lidocaine without epinephrine were injected into the joint space. All devices were removed, the soft tissues cleansed and a Band-Aid applied. RAD/Inj/Asp Bakari Jt Should/Hip/Knee IMPRESSION: Successful left hip injection. Complication: The patient tolerated the procedure well. There was no evidence for immediate postprocedure complication. Fluoroscopy time 19 seconds. Electronically Signed: Gutierrez Sage MD at 10:40 EDT , Service support , CC: ALECIA BREWER; Lenin Amador MD Beauty Consultant: Signed ALLERGIES ALLERGIES DATE TYPE / CODE NAME / CODE REACTION SEVERITY SOURCE 06/30/2018 Drug Penicillins/ Unknown Unknown [facility] Allergy/4160 [id number]([facility] 00056(SNOMED XNORM) Repository CT) ENCOUNTERS ENCOUNTERS ADMIT/DISCHARGE ACCOUNT ADMITTING ENCOUNTER LOCATION SOURCE NUMBER CLASS 07/14/2018/ [id number] [place], Inpatient [place] Giovanny 8 3 Lenin Encounter [facility] ing:[id number]: Repository [id number]: 1 06/30/2018 [id number] Ambulatory BMSBuilding:W [place] [facility] Repository 11/19/2017 [id number] Ambulatory [facility] 8 [facility] ing:RAD Repository PAYERS PAYERS ENCOUNTER GUARANTOR PAYER SUBSCRIBER SOURCE 07/14/2018 ISABEL D Primary ISABEL D [place] [id number] Insurance:ANTHEMPolic MILLERDOB: [facility] julio [place]: [id number] [id number] Repository [address]Ycf: (330) Date:[id number] [phone] () [id number], [place] [address]IA: 07/14/2018 Secondary NOT GIVENUNK [place] Insurance:SELF PAY [facility] Number: Effective Repository Date:2018-03-04 06/30/2018 ISABEL D Primary ISABEL D [place] [id number] Insurance:ANTHEMPolic MILLERDOB: Lucy julio Number: [id number] [id number] Repository [address]Vra: (330) Date:[id number] [phone] () [id number], [place] [address]CW: 06/30/2018 Secondary NOT GIVENUNK [place] Insurance:SELF PAY [facility] Number: Effective Repository Date:2018-06-30 11/19/2017 ISABEL MARCOS Primary ISABEL MARCOS [place] [id number] Insurance:ANTHEMPolic MILLERDOB: [facility] julio Number: [id number] [id number] Repository [address]Lck: (330) Date:6602-17-12KH [phone] () [id number], [place] [address]EB: 11/19/2017 Secondary NOT GIVENUNK [place] Insurance:SELF PAY [facility] Effective Repository Date:2017-11-16
== END 2018-07-15 13:55 | disposition home or self-care (01) | DRG 470 ==
LOC: ACINP 06:38 → MS3 11:07
PROVIDERS: Physician Assistant Surgical; Admitting Provider Specialist; Family Provider Family Medicine; PCP Family Medicine; Referring Provider Specialist; Visit Provider Specialist
PROC: 0SRB04A Replacement of Left Hip Joint with Ceramic on Polyethylene Synthetic Substitute, Uncemented, Open Approach (ICD-10-PCS; CPT 27284; principal; 2018-07-14 08:20)
DX: M16.0 Bilateral primary osteoarthritis of hip (principal)
CPT/HCPCS: 36415; 73501; 73502; 76000; 80048; 85025; 85027; 87081; 93005; 97110; 97162; 97165; 97530; 97535; C1776; J7120